=== PATIENT | female | born 1990 | race African-American/Black ===

== ENCOUNTER 2020-11-01 20:01 | Inpatient (IN) ==
[2020-11-01] MEDS ORDERED: methylPREDNISolone SOD SUC 125 MG/2 ML VIAL IV STA (20:50)
[2020-11-01] MEDS ORDERED: ALBUTEROL/IPRATROPIUM 3 ML NEB RESP TX STA (20:54)
[2020-11-01 21:50] LABS: Basophils % 0.2 % (0.0-0.8); Immature Granulocytes % 0.8 %; Immature Granulocytes Absolute 0.14 #; Lymphocytes # 1.5 10*3/uL (1.4-4.0); Mean Corpuscular HGB Conc 33.3 GM/DL (32-36); Mean Corpuscular Volume 86.1 FL (87-102); Monocytes % 2.5 % (1.7-12.7); Neutrophils % 88.5 % (38.7-73.9); Platelet Count 346 T/CUMM (130-400); Red Blood Count 4.18 MC/CUMM (3.8-5.5); Red Cell Distribution Width 14.5 % (9.3-17.3); White Blood Count 18.1 T/CUMM (4-12)
[2020-11-01] MEDS ORDERED: ALBUTEROL 2.5 MG/3 ML NEB RESP TX STA ×2 (21:53→21:54)
[2020-11-01 21:58] LABS: Alanine Aminotransferase 25 U/L (13-56); Albumin 3.2 G/DL (3.4-5.0); Alkaline Phosphatase 85 U/L (45-117); Aspartate Amino Transferase 26 U/L (0-37); Bilirubin,Total < 0.39 MG/DL (0.2-1.0); Blood Urea Nitrogen 8 MG/DL (7-18); Calcium 9.4 MG/DL (8.5-10.1); Estimated Glom Filtration Rate 138 ML/MIN; Glucose 159 MG/DL (74-106); Osmolality,Calculated 273.8 MOS/KG (273-304); Total Protein 7.6 G/DL (6.4-8.3)
[2020-11-01] MEDS ORDERED: SODIUM CHLORIDE 0.9% 1,000 ML IV STA (22:21)
[2020-11-02] MEDS ORDERED: ALBUTEROL 2.5 MG/3 ML NEB RESP TX PRN ×2 (01:38→08:22)
[2020-11-02] MEDS ORDERED: ONDANSETRON 4 MG/2 ML VIAL IV PRN (01:42)
[2020-11-02] MEDS ORDERED: ACETAMINOPHEN 325 MG TABLET PO PRN (01:42)
[2020-11-02] MEDS ORDERED: DOCUSATE SODIUM 100 MG CAPSULE PO PRN (01:42)
[2020-11-02] MEDS ORDERED: SODIUM CHLORIDE 0.9% 100 ML IV ONE (01:57)
[2020-11-02] MEDS: cefTRIAXone 1,000 MG in SYRINGE 1 EACH IV SCH (02:00)
[2020-11-02] MEDS: methylPREDNISolone SOD SUC 125 MG/2 ML VIAL IV SCH ×4 (03:11→20:55)
[2020-11-02] MEDS: AZITHROMYCIN INJ 250 MG in SODIUM CHLORIDE 0.9% 250 ML IV SCH (03:12)
[2020-11-02 05:46] LABS: Basophils % 0.1 % (0.0-0.8); Hematocrit 33.4 VOL% (35.7-47.0); Immature Granulocytes % 0.8 %; Immature Granulocytes Absolute 0.15 #; Lymphocytes # 1.6 10*3/uL (1.4-4.0); Lymphocytes % 8.4 % (21.3-54.2); Mean Corpuscular HGB Conc 32.9 GM/DL (32-36); Mean Corpuscular Volume 87.2 FL (87-102); Mean Platelet Volume 10.4 FL (9.6-12.0); Neutrophils % 87.7 % (38.7-73.9); Platelet Count 321 T/CUMM (130-400); Red Blood Count 3.83 MC/CUMM (3.8-5.5); Red Cell Distribution Width 14.6 % (9.3-17.3); White Blood Count 18.6 T/CUMM (4-12)
[2020-11-02 06:08] LABS: Calcium 8.7 MG/DL (8.5-10.1); Osmolality,Calculated 275.7 MOS/KG (273-304)
[2020-11-02] MEDS ORDERED: ALBUTEROL 2.5 MG/3 ML NEB RESP TX SCH (07:00)
[2020-11-02] MEDS ORDERED: MAGNESIUM SULF RIDER 2 GM in PREMIX 1 EACH IV ONE (08:24)
[2020-11-02] MEDS: FLUTICASONE/SALMETEROL 100-50 DISKUS 14 DOSE INH SCH ×2 (09:04→22:21)
[2020-11-02] MEDS: ENOXAPARIN 40 MG/0.4 ML SYRINGE SUBCUT SCH (09:04)
[2020-11-02] MEDS ORDERED: HydrOXYzine PAMOATE 50 MG CAPSULE PO PRN (10:18)
[2020-11-02] MEDS: ALBUTEROL 2.5 MG/3 ML NEB RESP TX SCH ×4 (11:00→23:08)
[2020-11-02] MEDS ORDERED: MONTELUKAST 10 MG TABLET PO SCH (21:00)
[2020-11-03] MEDS: cefTRIAXone 1,000 MG in SYRINGE 1 EACH IV SCH (02:32)
[2020-11-03] MEDS: methylPREDNISolone SOD SUC 125 MG/2 ML VIAL IV SCH ×2 (02:33→09:16)
[2020-11-03] MEDS: AZITHROMYCIN INJ 250 MG in SODIUM CHLORIDE 0.9% 250 ML IV SCH (02:45)
[2020-11-03] MEDS: ALBUTEROL 2.5 MG/3 ML NEB RESP TX SCH ×3 (03:01→10:50)
[2020-11-03 05:43] LABS: Basophils % 0.1 % (0.0-0.8); Hemoglobin 11.4 GM/DL (12.0-16.0); Immature Granulocytes % 1.3 %; Immature Granulocytes Absolute 0.28 #; Lymphocytes # 1.2 10*3/uL (1.4-4.0); Lymphocytes % 5.6 % (21.3-54.2); Mean Corpuscular HGB Conc 32.6 GM/DL (32-36); Mean Corpuscular Volume 88.4 FL (87-102); Monocytes % 3.2 % (1.7-12.7); Neutrophils % 89.8 % (38.7-73.9); Platelet Count 332 T/CUMM (130-400); Red Blood Count 3.96 MC/CUMM (3.8-5.5); Red Cell Distribution Width 14.7 % (9.3-17.3); White Blood Count 21.8 T/CUMM (4-12)
[2020-11-03 06:06] LABS: Calcium 8.4 MG/DL (8.5-10.1); Osmolality,Calculated 280.4 MOS/KG (273-304)
[2020-11-03 07:44] LABS: Anisocytosis 1+; Band Neutrophils 2 % (0-10); Lymphocytes 6 % (20-55); Macrocytosis 1+; Platelet Estimate Normal; Segmented Neutrophils 89 % (50-85); Total Cells Counted 100
[2020-11-03] MEDS: FLUTICASONE/SALMETEROL 100-50 DISKUS 14 DOSE INH SCH (09:15)
[2020-11-03] MEDS: ENOXAPARIN 40 MG/0.4 ML SYRINGE SUBCUT SCH (09:16)
[2020-11-03 12:23] VITALS: BP 140/58
== END 2020-11-03 13:18 | disposition home or self-care (01) | DRG 203 ==
LOC: N.ED 20:01 → N.EDINP 20:01 → SUATTDRO 23:36 → N.CC 11-02 04:16 → N.5E 11-02 11:06
PROVIDERS: ADMIT Family Medicine; ATTEND Family Medicine

== ENCOUNTER 2021-01-31 19:22 | Inpatient (IN) ==
[2021-01-31] MEDS ORDERED: ALBUTEROL 2.5 MG/3 ML NEB RESP TX ONE (19:28)
[2021-01-31] MEDS ORDERED: ALBUTEROL NEB SOLN 5 MG/ML 20 ML/BOTTLE CONT NEB STA (19:35)
[2021-01-31] MEDS ORDERED: SODIUM CHLORIDE 0.9% 1,000 ML IV STA (19:35)
[2021-01-31] MEDS ORDERED: methylPREDNISolone SOD SUC 125 MG/2 ML VIAL IV STA (19:37)
[2021-01-31] MEDS ORDERED: ONDANSETRON 4 MG/2 ML VIAL IV STA (19:40)
[2021-01-31] MEDS ORDERED: MORPHINE 4 MG/1 ML VIAL IV STA (19:40)
[2021-01-31] MEDS ORDERED: MAGNESIUM SULF RIDER 1 GM in PREMIX 1 EACH IV STA ×2 (19:44→20:55)
[2021-01-31 19:45] LABS: Basophils % 0.2 % (0.0-0.8); Eosinophils % 0.1 % (0.00-10.9); Hematocrit 39.7 VOL% (35.7-47.0); Hemoglobin 12.5 GM/DL (12.0-16.0); Lymphocytes # 2.7 10*3/uL (1.4-4.0); Lymphocytes % 17.8 % (21.3-54.2); Mean Corpuscular HGB Conc 31.5 GM/DL (32-36); Mean Corpuscular Volume 90.2 FL (87-102); Mean Platelet Volume 10.2 FL (9.6-12.0); Monocytes % 2.9 % (1.7-12.7); Platelet Count 414 T/CUMM (130-400); Red Cell Distribution Width 14.3 % (9.3-17.3); White Blood Count 15.4 T/CUMM (4-12)
[2021-01-31 20:06] LABS: Alanine Aminotransferase 23 U/L (13-56); Albumin 3.3 G/DL (3.4-5.0); Alkaline Phosphatase 95 U/L (45-117); Aspartate Amino Transferase 13 U/L (0-37); Bilirubin,Total < 0.39 MG/DL (0.2-1.0); Blood Urea Nitrogen 9 MG/DL (7-18); Calcium 8.9 MG/DL (8.5-10.1); Carbon Dioxide 20 MMOL/L (21-32); Glucose 242 MG/DL (74-106); Osmolality,Calculated 281.7 MOS/KG (273-304); Potassium 4.1 MMOL/L (3.5-5.1); Sodium 138 MMOL/L (136-145); Total Protein 7.8 G/DL (5.0-7.5)
[2021-01-31 20:20] LABS: Estimated Glom Filtration Rate 0 ML/MIN
[2021-01-31] MEDS ORDERED: ALBUTEROL 2.5 MG/3 ML NEB RESP TX PRN (20:50)
[2021-01-31] MEDS ORDERED: DOCUSATE SODIUM 100 MG CAPSULE PO PRN (20:50)
[2021-01-31] MEDS ORDERED: HydrOXYzine PAMOATE 50 MG CAPSULE PO PRN (20:53)
[2021-01-31] MEDS: LACTATED RINGERS 1,000 ML IV SCH (22:59)
[2021-01-31] MEDS: MONTELUKAST 10 MG TABLET PO SCH (22:59)
[2021-01-31] MEDS: ENOXAPARIN 40 MG/0.4 ML SYRINGE SUBCUT SCH (22:59)
[2021-01-31] MEDS: traMADol 50 MG TABLET PO PRN (22:59)
[2021-01-31] MEDS: methylPREDNISolone SOD SUC 40 MG/1 ML VIAL IV SCH (22:59)
[2021-01-31 23:24] LABS: Bilirubin,Urine Negative (Negative); Blood, Urine Negative (Negative); Glucose,Urine (UA) >=500 mg/dL (Negative); Hyaline Casts,Urine 6 /LPF (0-3); Ketones,Urine 5 mg/dL (Negative); Mucus,Urine Few /LPF (Occasional); Nitrite,Urine Negative (Negative); Protein,Urine 100 MG/DL; RBC,Urine <1 /HPF (0-4); Squamous Epithelial Cell,Urine Occasional /HPF (0-10); Urine Appearance CLEAR (Clear); Urine Color Yellow (Yellow); Urine Specific Gravity 1.022 (1.001-1.035); Urine Urobilinogen < 2.0 EU/DL (0.2-1.0); WBC,Urine 2 /HPF (0-6)
[2021-02-01 00:58] LABS: Basophils % 0.1 % (0.0-0.8); Hematocrit 35.8 VOL% (35.7-47.0); Hemoglobin 11.2 GM/DL (12.0-16.0); Immature Granulocytes % 0.9 %; Immature Granulocytes Absolute 0.17 #; Lymphocytes # 1.2 10*3/uL (1.4-4.0); Lymphocytes % 6.2 % (21.3-54.2); Mean Corpuscular HGB Conc 31.3 GM/DL (32-36); Mean Corpuscular Volume 90.6 FL (87-102); Monocytes % 1.4 % (1.7-12.7); Neutrophils % 91.4 % (38.7-73.9); Platelet Count 332 T/CUMM (130-400); Red Blood Count 3.95 MC/CUMM (3.8-5.5); Red Cell Distribution Width 14.5 % (9.3-17.3); White Blood Count 19.7 T/CUMM (4-12)
[2021-02-01] MEDS: ALBUTEROL/IPRATROPIUM 3 ML NEB RESP TX SCH ×4 (01:03→19:52)
[2021-02-01 01:25] LABS: Alanine Aminotransferase 19 U/L (13-56); Alkaline Phosphatase 82 U/L (45-117); Aspartate Amino Transferase 10 U/L (0-37); Bilirubin,Total < 0.39 MG/DL (0.2-1.0); Blood Urea Nitrogen 7 MG/DL (7-18); Calcium 8.6 MG/DL (8.5-10.1); Carbon Dioxide 22 MMOL/L (21-32); Estimated Glom Filtration Rate 126 ML/MIN; Glucose 211 MG/DL (74-106); Osmolality,Calculated 276.8 MOS/KG (273-304); Potassium 4.3 MMOL/L (3.5-5.1); Sodium 137 MMOL/L (136-145); Total Protein 7.1 G/DL (5.0-7.5)
[2021-02-01 01:40] LABS: Lymphocytes 7 % (20-55); Segmented Neutrophils 91 % (50-85); Total Cells Counted 100
[2021-02-01 01:41] LABS: Hypochromasia 1+; Platelet Estimate Normal
[2021-02-01] MEDS: methylPREDNISolone SOD SUC 40 MG/1 ML VIAL IV SCH ×2 (03:56→08:23)
[2021-02-01] MEDS: ACETAMINOPHEN 325 MG TABLET PO PRN ×2 (03:57→10:17)
[2021-02-01] MEDS: PANTOPRAZOLE 40 MG TABLET PO SCH (08:13)
[2021-02-01] MEDS: LACTATED RINGERS 1,000 ML IV SCH (08:25)
[2021-02-01] MEDS: methylPREDNISolone SOD SUC 125 MG/2 ML VIAL IV SCH ×2 (11:01→21:23)
[2021-02-01] MEDS: traMADol 50 MG TABLET PO PRN ×2 (13:13→21:17)
[2021-02-01] MEDS: MONTELUKAST 10 MG TABLET PO SCH (21:17)
[2021-02-01] MEDS: ENOXAPARIN 40 MG/0.4 ML SYRINGE SUBCUT SCH (21:23)
[2021-02-02] MEDS: ACETAMINOPHEN 325 MG TABLET PO PRN (00:15)
[2021-02-02 01:09] LABS: Calcium 8.3 MG/DL (8.5-10.1); Osmolality,Calculated 278.7 MOS/KG (273-304)
[2021-02-02] MEDS: ALBUTEROL/IPRATROPIUM 3 ML NEB RESP TX SCH ×4 (01:38→20:02)
[2021-02-02 01:46] LABS: Basophils % 0.1 % (0.0-0.8); Hematocrit 35.3 VOL% (35.7-47.0); Hemoglobin 11.2 GM/DL (12.0-16.0); Immature Granulocytes % 1.2 %; Immature Granulocytes Absolute 0.31 #; Lymphocytes # 1.6 10*3/uL (1.4-4.0); Lymphocytes % 6.3 % (21.3-54.2); Mean Corpuscular HGB Conc 31.7 GM/DL (32-36); Mean Corpuscular Volume 89.8 FL (87-102); Mean Platelet Volume 11.2 FL (9.6-12.0); Monocytes % 3.9 % (1.7-12.7); Neutrophils % 88.5 % (38.7-73.9); Platelet Count 313 T/CUMM (130-400); Red Blood Count 3.93 MC/CUMM (3.8-5.5); Red Cell Distribution Width 14.8 % (9.3-17.3); White Blood Count 25.3 T/CUMM (4-12)
[2021-02-02 04:38] LABS: Hypochromasia Slight; Lymphocytes 4 % (20-55); Platelet Estimate Adequate; Segmented Neutrophils 92 % (50-85); Total Cells Counted 100
[2021-02-02 04:39] LABS: Microcytosis Slight
[2021-02-02] MEDS: traMADol 50 MG TABLET PO PRN ×2 (08:48→22:20)
[2021-02-02] MEDS: methylPREDNISolone SOD SUC 125 MG/2 ML VIAL IV SCH (08:49)
[2021-02-02] MEDS: PANTOPRAZOLE 40 MG TABLET PO SCH (08:49)
[2021-02-02] MEDS ORDERED: POLYETHYLENE GLYCOL POWDER 17 GM PACK PO SCH (09:00)
[2021-02-02] MEDS ORDERED: methylPREDNISolone SOD SUC 40 MG/1 ML VIAL IV SCH (10:21)
[2021-02-02] MEDS: POLYETHYLENE GLYCOL POWDER 17 GM PACK PO SCH ×2 (10:54→22:20)
[2021-02-02] MEDS: predniSONE 20 MG TABLET PO SCH (10:56)
[2021-02-02] MEDS: NICOTINE 14 MG/24 HR PATCH TRANSDERM SCH (11:27)
[2021-02-02] MEDS: buPROPion SR 100 MG TABLET PO SCH (11:28)
[2021-02-02] MEDS: DOCUSATE SODIUM 100 MG CAPSULE PO SCH ×2 (11:28→22:20)
[2021-02-02] MEDS: BUDESONIDE/FORMOTEROL 80-4.5 INHALER 6.9 GM INH SCH ×2 (11:29→22:20)
[2021-02-02] MEDS: ONDANSETRON 4 MG/2 ML VIAL IV PRN ×3 (11:31→22:40)
[2021-02-02] MEDS: ENOXAPARIN 40 MG/0.4 ML SYRINGE SUBCUT SCH (22:20)
[2021-02-02] MEDS: MONTELUKAST 10 MG TABLET PO SCH (22:20)
[2021-02-03] MEDS: ALBUTEROL/IPRATROPIUM 3 ML NEB RESP TX SCH ×4 (01:20→19:23)
[2021-02-03 05:46] LABS: Basophils % 0.2 % (0.0-0.8); Eosinophils % 0.1 % (0.00-10.9); Hemoglobin 11.2 GM/DL (12.0-16.0); Immature Granulocytes % 1.5 %; Immature Granulocytes Absolute 0.29 #; Lymphocytes # 4.5 10*3/uL (1.4-4.0); Mean Corpuscular Volume 88.6 FL (87-102); Mean Platelet Volume 10.3 FL (9.6-12.0); Monocytes % 7.1 % (1.7-12.7); Neutrophils % 68.1 % (38.7-73.9); Platelet Count 296 T/CUMM (130-400); Red Blood Count 3.95 MC/CUMM (3.8-5.5); Red Cell Distribution Width 14.6 % (9.3-17.3); White Blood Count 19.5 T/CUMM (4-12)
[2021-02-03] MEDS: ONDANSETRON 4 MG/2 ML VIAL IV PRN ×4 (05:50→21:01)
[2021-02-03 06:03] LABS: Osmolality,Calculated 281.3 MOS/KG (273-304); Potassium 3.9 MMOL/L (3.5-5.1)
[2021-02-03 06:10] LABS: Hypochromasia 2+; Platelet Estimate Normal; Polychromasia Few
[2021-02-03] MEDS: BUDESONIDE/FORMOTEROL 80-4.5 INHALER 6.9 GM INH SCH ×2 (08:33→21:30)
[2021-02-03] MEDS: predniSONE 20 MG TABLET PO SCH (08:33)
[2021-02-03] MEDS: DOCUSATE SODIUM 100 MG CAPSULE PO SCH ×2 (08:33→21:01)
[2021-02-03] MEDS: NICOTINE 14 MG/24 HR PATCH TRANSDERM SCH (08:33)
[2021-02-03] MEDS: buPROPion SR 100 MG TABLET PO SCH (08:33)
[2021-02-03] MEDS: PANTOPRAZOLE 40 MG TABLET PO SCH (08:33)
[2021-02-03] MEDS: POLYETHYLENE GLYCOL POWDER 17 GM PACK PO SCH ×2 (08:33→21:01)
[2021-02-03] MEDS: traMADol 50 MG TABLET PO PRN (10:08)
[2021-02-03] MEDS ORDERED: MAGNESIUM CITRATE 300 ML BOTTLE PO ONE (13:02)
[2021-02-03] MEDS ORDERED: SODIUM PHOSPHATE ENEMA 133 ML BOTTLE RECTAL ONE (13:15)
[2021-02-03 14:16] LABS: Troponin I < 0.015 NG/ML (0.00-0.045)
[2021-02-03] MEDS: ENOXAPARIN 40 MG/0.4 ML SYRINGE SUBCUT SCH (21:00)
[2021-02-03] MEDS ORDERED: SENNA 8.6 MG TABLET PO SCH (21:00)
[2021-02-03] MEDS: MONTELUKAST 10 MG TABLET PO SCH (21:01)
[2021-02-04] MEDS: ALBUTEROL/IPRATROPIUM 3 ML NEB RESP TX SCH ×3 (01:19→13:00)
[2021-02-04] MEDS: ONDANSETRON 4 MG/2 ML VIAL IV PRN ×2 (01:54→08:17)
[2021-02-04] MEDS: ACETAMINOPHEN 325 MG TABLET PO PRN (01:58)
[2021-02-04 03:46] LABS: Basophils % 0.2 % (0.0-0.8); Eosinophils # 0.1 10*3/uL (0.0-0.87); Eosinophils % 0.3 % (0.00-10.9); Hematocrit 35.3 VOL% (35.7-47.0); Hemoglobin 11.4 GM/DL (12.0-16.0); Immature Granulocytes % 0.9 %; Immature Granulocytes Absolute 0.18 #; Lymphocytes # 5.7 10*3/uL (1.4-4.0); Lymphocytes % 29.3 % (21.3-54.2); Mean Corpuscular HGB Conc 32.3 GM/DL (32-36); Mean Corpuscular Volume 88.5 FL (87-102); Mean Platelet Volume 11.1 FL (9.6-12.0); Monocytes % 7.2 % (1.7-12.7); Neutrophils % 62.1 % (38.7-73.9); Platelet Count 307 T/CUMM (130-400); Red Blood Count 3.99 MC/CUMM (3.8-5.5); Red Cell Distribution Width 14.6 % (9.3-17.3); White Blood Count 19.6 T/CUMM (4-12)
[2021-02-04 04:10] LABS: Calcium 8.1 MG/DL (8.5-10.1); Osmolality,Calculated 275.5 MOS/KG (273-304); Potassium 3.5 MMOL/L (3.5-5.1)
[2021-02-04 04:11] LABS: Lymphocytes 34 % (20-55); Platelet Estimate Adequate; Segmented Neutrophils 61 % (50-85); Total Cells Counted 100
[2021-02-04 04:12] LABS: Hypochromasia Slight
[2021-02-04] MEDS ORDERED: LINACLOTIDE 145 MCG CAPSULE PO SCH (07:30)
[2021-02-04] MEDS: BUDESONIDE/FORMOTEROL 80-4.5 INHALER 6.9 GM INH SCH (08:16)
[2021-02-04] MEDS: NICOTINE 14 MG/24 HR PATCH TRANSDERM SCH (08:17)
[2021-02-04] MEDS: PANTOPRAZOLE 40 MG TABLET PO SCH (08:18)
[2021-02-04] MEDS: buPROPion SR 100 MG TABLET PO SCH (08:18)
[2021-02-04] MEDS: POLYETHYLENE GLYCOL POWDER 17 GM PACK PO SCH (08:18)
[2021-02-04] MEDS: predniSONE 20 MG TABLET PO SCH (08:18)
[2021-02-04] MEDS: DOCUSATE SODIUM 100 MG CAPSULE PO SCH (08:18)
[2021-02-04] MEDS ORDERED: PROMETHAZINE 25 MG TABLET PO ONE (11:00)
[2021-02-04 15:27] VITALS: BP 132/83
== END 2021-02-04 13:01 | disposition home or self-care (01) | DRG 202 ==
LOC: EDUNIT# → N.ED 19:22 → N.EDINP 20:50 → SUATTDRO 20:50 → N.ICU 22:12 → N.5E 02-01 11:15
PROVIDERS: ADMIT Internal Medicine; ATTEND Hospitalist

== ENCOUNTER 2021-06-24 05:45 | Observation (INO) ==
[2021-06-24] MEDS ORDERED: RACEPINEPHRINE 0.5 ML NEB RESP TX STA (05:53)
[2021-06-24] MEDS ORDERED: MAGNESIUM SULF RIDER 2 GM/50 ML PREMIX IV STA (05:53)
[2021-06-24] MEDS ORDERED: methylPREDNISolone SOD SUC 125 MG/2 ML VIAL IV STA (05:53)
[2021-06-24] MEDS ORDERED: ALBUTEROL NEB SOLN 5 MG/ML 20 ML/BOTTLE ONE (05:53)
[2021-06-24] MEDS ORDERED: ONDANSETRON 4 MG/2 ML VIAL IV STA (05:53)
[2021-06-24] MEDS ORDERED: RACEPINEPHRINE 0.5 ML NEB RESP TX ONE (05:54)
[2021-06-24] MEDS ORDERED: BUDESONIDE 0.5 MG/2 ML NEB RESP TX ONE (05:54)
[2021-06-24] MEDS ORDERED: ALBUTEROL NEB SOLN 5 MG/ML 20 ML/BOTTLE CONT NEB SCH (06:00)
[2021-06-24 06:21] LABS: Basophils % 0.4 % (0.0-0.8); Eosinophils # 0.4 10*3/uL (0.0-0.87); Eosinophils % 4.1 % (0.00-10.9); Hematocrit 35.9 VOL% (35.7-47.0); Hemoglobin 11.5 GM/DL (12.0-16.0); Immature Granulocytes % 0.4 %; Immature Granulocytes Absolute 0.03 #; Lymphocytes # 3.5 10*3/uL (1.4-4.0); Lymphocytes % 40.7 % (21.3-54.2); Mean Corpuscular Volume 88.4 FL (87-102); Mean Platelet Volume 10.8 FL (9.6-12.0); Monocytes % 7.6 % (1.7-12.7); Neutrophils % 46.8 % (38.7-73.9); Platelet Count 339 T/CUMM (130-400); Red Blood Count 4.06 MC/CUMM (3.8-5.5); Red Cell Distribution Width 14.4 % (9.3-17.3); White Blood Count 8.5 T/CUMM (4-12)
[2021-06-24 06:32] LABS: ABG Base Excess -1.5 MMOL/L (-2.5-2.5); ABG HCO3 23.1 MMOL/L (20-26); ABG Oxygen Saturation 99.6 % (95-100); ABG PCO2 41.1 MM HG (35-48); ABG PH 7.368 (7.35-7.45); ABG TCO2 21.2 MMOL/L (23-27)
[2021-06-24 06:43] LABS: Alanine Aminotransferase 19 U/L (13-56); Alkaline Phosphatase 72 U/L (45-117); Aspartate Amino Transferase 12 U/L (0-37); Bilirubin,Total < 0.39 MG/DL (0.20-1.00); Blood Urea Nitrogen 12 MG/DL (7-18); Calcium 8.3 MG/DL (8.5-10.1); Carbon Dioxide 24 MMOL/L (21-32); Estimated Glom Filtration Rate 172 ML/MIN; Glucose 113 MG/DL (74-106); Osmolality,Calculated 281.3 MOS/KG (273-304); Potassium 3.8 MMOL/L (3.5-5.1); Sodium 141 MMOL/L (136-145); Total Protein 6.5 G/DL (6.4-8.2)
[2021-06-24 08:03] LABS: Bilirubin,Urine Negative (Negative); Blood, Urine Negative (Negative); Glucose,Urine (UA) Negative (Negative); Ketones,Urine Negative (Negative); Mucus,Urine Occasional /LPF (Occasional); Nitrite,Urine Negative (Negative); Protein,Urine Negative; RBC,Urine 1 /HPF (0-4); Squamous Epithelial Cell,Urine Occasional /HPF (0-10); Urine Appearance CLEAR (Clear); Urine Color Yellow (Yellow); Urine Specific Gravity 1.014 (1.001-1.035); Urine Urobilinogen < 2.0 EU/DL (0.2-1.0)
[2021-06-24 08:06] LABS: Barbiturates Screen,Urine Negative (Negative); Benzodiazepines Screen,Urine Negative (Negative); Cannabinoid Screen,Urine Negative (Negative); Opiate Screen,Urine Negative (Negative); Phencyclidine Screen,Urine Negative (Negative)
[2021-06-24] MEDS ORDERED: DEXTROSE 50% 25 GM/50 ML VIAL IV PRN (08:30)
[2021-06-24] MEDS ORDERED: ACETAMINOPHEN 325 MG TABLET PO PRN (08:30)
[2021-06-24] MEDS ORDERED: GLUCAGON 1 MG VIAL IM PRN (08:30)
[2021-06-24] MEDS ORDERED: hydrALAZINE 20 MG/1 ML VIAL IV PRN (08:30)
[2021-06-24] MEDS ORDERED: ENOXAPARIN 40 MG/0.4 ML SYRINGE ONE (08:35)
[2021-06-24] MEDS: ENOXAPARIN 40 MG/0.4 ML SYRINGE SUBCUT SCH (08:38)
[2021-06-24] MEDS: ONDANSETRON 4 MG/2 ML VIAL IV PRN ×3 (08:39→20:29)
[2021-06-24] MEDS ORDERED: ALBUTEROL 2.5 MG/3 ML NEB RESP TX PRN (08:53)
[2021-06-24] MEDS: PANTOPRAZOLE 40 MG TABLET PO SCH (09:20)
[2021-06-24] MEDS: ALBUTEROL/IPRATROPIUM 3 ML NEB RESP TX SCH ×2 (12:30→18:25)
[2021-06-24] MEDS: methylPREDNISolone SOD SUC 125 MG/2 ML VIAL IV SCH ×2 (15:47→23:33)
[2021-06-24] MEDS: DOCUSATE SODIUM 100 MG CAPSULE PO PRN (20:22)
[2021-06-24] MEDS: BUDESONIDE/FORMOTEROL 160-4.5 INHALER 6 GM INH SCH (20:23)
[2021-06-24] MEDS ORDERED: MONTELUKAST 10 MG TABLET PO SCH (21:00)
[2021-06-24] MEDS ORDERED: tiZANidine 4 MG TABLET PO SCH (21:00)
[2021-06-25] MEDS: ALBUTEROL/IPRATROPIUM 3 ML NEB RESP TX SCH ×2 (00:38→07:27)
[2021-06-25 05:31] LABS: Basophils % 0.1 % (0.0-0.8); Hematocrit 35.6 VOL% (35.7-47.0); Hemoglobin 11.2 GM/DL (12.0-16.0); Immature Granulocytes % 1.1 %; Immature Granulocytes Absolute 0.24 #; Lymphocytes # 1.5 10*3/uL (1.4-4.0); Lymphocytes % 7.2 % (21.3-54.2); Mean Corpuscular HGB Conc 31.5 GM/DL (32-36); Mean Corpuscular Volume 89.9 FL (87-102); Mean Platelet Volume 10.5 FL (9.6-12.0); Monocytes % 2.7 % (1.7-12.7); Neutrophils % 88.9 % (38.7-73.9); Platelet Count 344 T/CUMM (130-400); Red Blood Count 3.96 MC/CUMM (3.8-5.5); Red Cell Distribution Width 14.6 % (9.3-17.3); White Blood Count 21.4 T/CUMM (4-12)
[2021-06-25] MEDS: ONDANSETRON 4 MG/2 ML VIAL IV PRN (05:42)
[2021-06-25 05:49] LABS: Calcium 8.6 MG/DL (8.5-10.1); Osmolality,Calculated 276.7 MOS/KG (273-304); Potassium 4.2 MMOL/L (3.5-5.1)
[2021-06-25 05:56] LABS: Lymphocytes 5 % (20-55); Platelet Estimate Normal; Segmented Neutrophils 93 % (50-85); Total Cells Counted 100
[2021-06-25] MEDS ORDERED: SODIUM CHLORIDE 0.65% NASAL SPRAY 45 ML BOTTLE BOTH NARES PRN (07:06)
[2021-06-25] MEDS: PANTOPRAZOLE 40 MG TABLET PO SCH (07:21)
[2021-06-25] MEDS: DOCUSATE SODIUM 100 MG CAPSULE PO PRN (07:24)
[2021-06-25] MEDS ORDERED: predniSONE 20 MG TABLET PO SCH (07:30)
[2021-06-25 07:41] VITALS: BP 134/62
[2021-06-25] MEDS: ENOXAPARIN 40 MG/0.4 ML SYRINGE SUBCUT SCH (08:35)
[2021-06-25] MEDS: BUDESONIDE/FORMOTEROL 160-4.5 INHALER 6 GM INH SCH (08:35)
[2021-06-25] MEDS ORDERED: predniSONE 10 MG TABLET ONE (08:35)
[2021-06-25] MEDS ORDERED: LORATADINE 10 MG TABLET PO SCH (09:00)
== END 2021-06-25 10:45 | disposition home or self-care (01) ==
LOC: EDBD → EDUNIT# → N.EDINP 05:45 → N.ED 05:45 → N.EDINP 10:20 → N.OB 10:29
PROVIDERS: ADMIT Internal Medicine; ATTEND Internal Medicine

== ENCOUNTER 2021-07-10 08:06 | Observation (INO) ==
[2021-07-10] MEDS ORDERED: ALBUTEROL NEB SOLN 5 MG/ML 20 ML/BOTTLE CONT NEB STA (08:22)
[2021-07-10] MEDS ORDERED: methylPREDNISolone SOD SUC 125 MG/2 ML VIAL IV STA (08:23)
[2021-07-10] MEDS ORDERED: MAGNESIUM SULF RIDER 2 GM/50 ML PREMIX IV STA (08:23)
[2021-07-10 09:01] LABS: Basophils % 0.3 % (0.0-0.8); Eosinophils % 0.2 % (0.00-10.9); Hematocrit 36.8 VOL% (35.7-47.0); Hemoglobin 11.5 GM/DL (12.0-16.0); Immature Granulocytes % 0.5 %; Immature Granulocytes Absolute 0.05 #; Lymphocytes # 2.2 10*3/uL (1.4-4.0); Lymphocytes % 21.4 % (21.3-54.2); Mean Corpuscular HGB Conc 31.3 GM/DL (32-36); Mean Corpuscular Volume 90.2 FL (87-102); Mean Platelet Volume 10.5 FL (9.6-12.0); Monocytes % 10.9 % (1.7-12.7); Neutrophils % 66.7 % (38.7-73.9); Platelet Count 370 T/CUMM (130-400); Red Blood Count 4.08 MC/CUMM (3.8-5.5); Red Cell Distribution Width 15.1 % (9.3-17.3); White Blood Count 10.5 T/CUMM (4-12)
[2021-07-10 09:17] LABS: Calcium 8.3 MG/DL (8.5-10.1); Osmolality,Calculated 282.1 MOS/KG (273-304); Potassium 3.5 MMOL/L (3.5-5.1)
[2021-07-10] MEDS ORDERED: DEXTROSE 50% 25 GM/50 ML VIAL IV PRN (10:41)
[2021-07-10] MEDS ORDERED: ACETAMINOPHEN 325 MG TABLET PO PRN (10:41)
[2021-07-10] MEDS ORDERED: ALBUTEROL 2.5 MG/3 ML NEB RESP TX PRN (10:41)
[2021-07-10] MEDS ORDERED: GLUCAGON 1 MG VIAL IM PRN (10:41)
[2021-07-10] MEDS ORDERED: methylPREDNISolone SOD SUC 125 MG/2 ML VIAL IV SCH (11:00)
[2021-07-10] MEDS ORDERED: hydrALAZINE 20 MG/1 ML VIAL IV PRN (12:00)
[2021-07-10] MEDS ORDERED: NICOTINE 21 MG/24 HR PATCH TRANSDERM PRN (12:01)
[2021-07-10] MEDS: ENOXAPARIN 40 MG/0.4 ML SYRINGE SUBCUT SCH (12:11)
[2021-07-10] MEDS ORDERED: NON-FORMULARY MEDICATION (Acetaminophen 500 mg Capsule) PO PRN (13:52)
[2021-07-10] MEDS ORDERED: SODIUM CHLORIDE 0.65% NASAL SPRAY 45 ML BOTTLE BOTH NARES PRN (13:52)
[2021-07-10] MEDS ORDERED: ALBUTEROL SULFATE IH PRN (13:52)
[2021-07-10] MEDS: methylPREDNISolone SOD SUC 125 MG/2 ML VIAL IV SCH ×2 (14:28→21:04)
[2021-07-10] MEDS: HydrOXYzine PAMOATE 25 MG CAPSULE PO PRN (14:43)
[2021-07-10] MEDS ORDERED: LEVOFLOXACIN 750 MG TABLET PO SCH (15:00)
[2021-07-10] MEDS: ALBUTEROL 2.5 MG/3 ML NEB RESP TX SCH ×2 (15:26→23:50)
[2021-07-10] MEDS ORDERED: cefTRIAXone 1,000 MG in SODIUM CHLORIDE 0.9% 100 ML IV SCH (16:00)
[2021-07-10] MEDS ORDERED: AZITHROMYCIN INJ 500 MG in SODIUM CHLORIDE 0.9% 250 ML IV SCH (16:00)
[2021-07-10] MEDS: ONDANSETRON 4 MG/2 ML VIAL IV PRN (17:14)
[2021-07-10] MEDS ORDERED: MONTELUKAST 10 MG TABLET PO SCH ×2 (21:00)
[2021-07-10] MEDS ORDERED: tiZANidine 4 MG TABLET PO SCH (21:00)
[2021-07-10] MEDS: BENZONATATE 100 MG CAPSULE PO PRN (21:03)
[2021-07-10] MEDS: BUDESONIDE/FORMOTEROL 160-4.5 INHALER 6 GM INH SCH (21:04)
[2021-07-11] MEDS: methylPREDNISolone SOD SUC 125 MG/2 ML VIAL IV SCH ×2 (03:46→10:00)
[2021-07-11] MEDS: ONDANSETRON 4 MG/2 ML VIAL IV PRN (06:26)
[2021-07-11] MEDS: ALBUTEROL 2.5 MG/3 ML NEB RESP TX SCH (07:16)
[2021-07-11] MEDS ORDERED: PANTOPRAZOLE 40 MG TABLET PO SCH (09:00)
[2021-07-11] MEDS: HydrOXYzine PAMOATE 25 MG CAPSULE PO PRN (09:14)
[2021-07-11] MEDS: BUDESONIDE/FORMOTEROL 160-4.5 INHALER 6 GM INH SCH (09:15)
[2021-07-11] MEDS: BENZONATATE 100 MG CAPSULE PO PRN (09:54)
[2021-07-11] MEDS: ENOXAPARIN 40 MG/0.4 ML SYRINGE SUBCUT SCH (10:01)
[2021-07-11 11:19] VITALS: BP 134/62
[2021-07-12] MEDS ORDERED: predniSONE 20 MG TABLET PO SCH (09:00)
== END 2021-07-11 13:00 | disposition home or self-care (01) ==
LOC: N.ED 08:06 → N.EDINP 08:06 → N.5E 12:15
PROVIDERS: ADMIT Internal Medicine; ATTEND Internal Medicine

== ENCOUNTER 2022-04-15 07:42 | Inpatient (IN) ==
[2022-04-15 08:03] LABS: Basophils % 0.6 % (0.0-0.8); Eosinophils # 0.4 10*3/uL (0.0-0.87); Eosinophils % 6.3 % (0.00-10.9); Hematocrit 34.7 VOL% (35.7-47.0); Hemoglobin 11.1 GM/DL (12.0-16.0); Immature Granulocytes % 0.4 %; Immature Granulocytes Absolute 0.03 #; Lymphocytes # 2.3 10*3/uL (1.4-4.0); Lymphocytes % 32.3 % (21.3-54.2); Mean Platelet Volume 10.1 FL (9.6-12.0); Monocytes # 0.6 10*3/uL (0.11-0.8); Monocytes % 8.1 % (1.7-12.7); Neutrophils % 52.3 % (38.7-73.9); Platelet Count 299 T/CUMM (130-400); Red Blood Count 3.99 MC/CUMM (3.8-5.5); Red Cell Distribution Width 14.1 % (9.3-17.3)
[2022-04-15] MEDS ORDERED: methylPREDNISolone SOD SUC 125 MG/2 ML VIAL IV STA ×2 (08:13→14:52)
[2022-04-15] MEDS ORDERED: ALBUTEROL NEB SOLN 5 MG/ML 20 ML/BOTTLE CONT NEB STA (08:13)
[2022-04-15 08:30] LABS: Alanine Aminotransferase 16 U/L (13-56); Albumin 2.9 G/DL (3.4-5.0); Alkaline Phosphatase 78 U/L (45-117); Aspartate Amino Transferase 10 U/L (0-37); Bilirubin,Total < 0.39 MG/DL (0.20-1.00); Blood Urea Nitrogen 11 MG/DL (7-18); Calcium 8.4 MG/DL (8.5-10.1); Carbon Dioxide 22 MMOL/L (21-32); Chloride 109 MMOL/L (98-107); Glucose 103 MG/DL (74-106); Osmolality,Calculated 273.7 MOS/KG (273-304); Potassium 3.5 MMOL/L (3.5-5.1); Sodium 138 MMOL/L (136-145); Total Protein 6.9 G/DL (6.4-8.2)
[2022-04-15] MEDS ORDERED: ONDANSETRON 4 MG/2 ML VIAL IV STA (09:57)
[2022-04-15] MEDS ORDERED: MORPHINE 10 MG/1 ML VIAL IV STA (09:57)
[2022-04-15] MEDS ORDERED: MORPHINE 2 MG/1 ML SYRINGE ONE (10:00)
[2022-04-15] MEDS ORDERED: guaiFENesin/DM ER 600-30 MG TABLET PO PRN (11:12)
[2022-04-15] MEDS ORDERED: hydrALAZINE 20 MG/1 ML VIAL IV PRN (11:12)
[2022-04-15] MEDS ORDERED: GLUCAGON 1 MG VIAL IM PRN (11:12)
[2022-04-15] MEDS ORDERED: ACETAMINOPHEN 325 MG TABLET PO PRN (11:12)
[2022-04-15] MEDS ORDERED: DEXTROSE 10% 250 ML BAG IV PRN (11:12)
[2022-04-15] MEDS ORDERED: MAGNESIUM SULF RIDER 2 GM/50 ML PREMIX IV ONE (11:13)
[2022-04-15] MEDS: LACTATED RINGERS 1,000 ML IV SCH (12:30)
[2022-04-15] MEDS ORDERED: LORazepam 2 MG/1 ML VIAL ONE (14:47)
[2022-04-15] MEDS ORDERED: LORazepam 2 MG/1 ML VIAL IV ONE (14:48)
[2022-04-15] MEDS ORDERED: methylPREDNISolone SOD SUC 125 MG/2 ML VIAL IV ONE (14:52)
[2022-04-15] MEDS: ALBUTEROL 2.5 MG/3 ML NEB RESP TX SCH ×3 (14:55→23:50)
[2022-04-15 15:14] LABS: Arterial Base Excess iSTAT -4 MMOL/L (-2.5-2.5); Arterial Bicarbonate iSTAT 20.7 MMOL/L (20-26); Arterial O2 Saturation iSTAT 97 % (95-100); Arterial PCO2 iSTAT 35 MM HG (35-48); Arterial PO2 iSTAT 95 MM HG (80-95); Arterial Total CO2 iSTAT 22 MMO/L (23-27); Arterial pH iSTAT 7.376 (7.35-7.45)
[2022-04-15] MEDS ORDERED: FLUTICASONE/SALMETEROL 500-50 DISKUS 14 DOSE INH SCH (21:00)
[2022-04-15] MEDS: MONTELUKAST 10 MG TABLET PO SCH (21:09)
[2022-04-15] MEDS: BUDESONIDE/FORMOTEROL 160-4.5 INHALER 6 GM INH SCH (21:10)
[2022-04-15] MEDS: methylPREDNISolone SOD SUC 125 MG/2 ML VIAL IV SCH (21:10)
[2022-04-15] MEDS: ENOXAPARIN 40 MG/0.4 ML SYRINGE SUBCUT SCH (21:10)
[2022-04-15] MEDS: ONDANSETRON 4 MG/2 ML VIAL IV PRN (21:13)
[2022-04-15] MEDS: MORPHINE 2 MG/1 ML SYRINGE IV PRN (22:48)
[2022-04-16] MEDS: LACTATED RINGERS 1,000 ML IV SCH ×3 (00:54→21:27)
[2022-04-16] MEDS: methylPREDNISolone SOD SUC 125 MG/2 ML VIAL IV SCH ×4 (02:20→21:15)
[2022-04-16] MEDS: ALBUTEROL 2.5 MG/3 ML NEB RESP TX SCH ×6 (03:30→22:49)
[2022-04-16 05:10] LABS: Basophils % 0.1 % (0.0-0.8); Hematocrit 35.2 VOL% (35.7-47.0); Hemoglobin 11.3 GM/DL (12.0-16.0); Immature Granulocytes % 0.8 %; Immature Granulocytes Absolute 0.12 #; Lymphocytes # 1.5 10*3/uL (1.4-4.0); Lymphocytes % 10.2 % (21.3-54.2); Mean Corpuscular HGB Conc 32.1 GM/DL (32-36); Mean Corpuscular Volume 86.3 FL (87-102); Mean Platelet Volume 10.1 FL (9.6-12.0); Monocytes # 0.2 10*3/uL (0.11-0.8); Monocytes % 1.5 % (1.7-12.7); Neutrophils % 87.4 % (38.7-73.9); Platelet Count 316 T/CUMM (130-400); Red Blood Count 4.08 MC/CUMM (3.8-5.5); Red Cell Distribution Width 14.4 % (9.3-17.3); White Blood Count 14.5 T/CUMM (4-12)
[2022-04-16 05:26] LABS: Calcium 8.8 MG/DL (8.5-10.1); Osmolality,Calculated 275.7 MOS/KG (273-304)
[2022-04-16] MEDS ORDERED: tiZANidine 4 MG TABLET PO PRN (09:48)
[2022-04-16] MEDS ORDERED: LORazepam 2 MG/1 ML VIAL IV PRN (09:57)
[2022-04-16] MEDS: amLODIPine 2.5 MG TABLET PO SCH (10:05)
[2022-04-16] MEDS: PANTOPRAZOLE 40 MG TABLET PO SCH (10:05)
[2022-04-16] MEDS: BUDESONIDE/FORMOTEROL 160-4.5 INHALER 6 GM INH SCH ×2 (10:07→21:12)
[2022-04-16] MEDS: MORPHINE 2 MG/1 ML SYRINGE IV PRN ×2 (10:08→18:39)
[2022-04-16] MEDS: AZITHROMYCIN 250 MG TABLET PO SCH (14:08)
[2022-04-16] MEDS: ENOXAPARIN 40 MG/0.4 ML SYRINGE SUBCUT SCH (21:08)
[2022-04-16] MEDS: MONTELUKAST 10 MG TABLET PO SCH (21:09)
[2022-04-17] MEDS: LACTATED RINGERS 1,000 ML IV SCH ×2 (00:18→06:33)
[2022-04-17] MEDS: methylPREDNISolone SOD SUC 125 MG/2 ML VIAL IV SCH ×4 (03:16→21:38)
[2022-04-17] MEDS: ALBUTEROL 2.5 MG/3 ML NEB RESP TX SCH ×6 (03:33→22:50)
[2022-04-17] MEDS: ONDANSETRON 4 MG/2 ML VIAL IV PRN ×2 (04:35→10:10)
[2022-04-17 05:45] LABS: Basophils % 0.1 % (0.0-0.8); Hematocrit 34.6 VOL% (35.7-47.0); Immature Granulocytes % 1.4 %; Lymphocytes # 1.4 10*3/uL (1.4-4.0); Lymphocytes % 6.5 % (21.3-54.2); Mean Corpuscular HGB Conc 31.8 GM/DL (32-36); Mean Corpuscular Volume 87.8 FL (87-102); Mean Platelet Volume 11.2 FL (9.6-12.0); Monocytes # 0.4 10*3/uL (0.11-0.8); Platelet Count 327 T/CUMM (130-400); Red Blood Count 3.94 MC/CUMM (3.8-5.5); Red Cell Distribution Width 14.7 % (9.3-17.3); White Blood Count 21.7 T/CUMM (4-12)
[2022-04-17 06:02] LABS: Calcium 8.6 MG/DL (8.5-10.1); Osmolality,Calculated 279.4 MOS/KG (273-304); Potassium 3.6 MMOL/L (3.5-5.1)
[2022-04-17 06:07] LABS: Band Neutrophils 1 % (0-10); Lymphocytes 8 % (20-55); Platelet Estimate Adequate; Total Cells Counted 100
[2022-04-17] MEDS: AZITHROMYCIN 250 MG TABLET PO SCH (09:56)
[2022-04-17] MEDS: PANTOPRAZOLE 40 MG TABLET PO SCH (09:56)
[2022-04-17] MEDS: amLODIPine 2.5 MG TABLET PO SCH (09:56)
[2022-04-17] MEDS: BUDESONIDE/FORMOTEROL 160-4.5 INHALER 6 GM INH SCH ×2 (09:57→21:38)
[2022-04-17] MEDS: MONTELUKAST 10 MG TABLET PO SCH (21:38)
[2022-04-17] MEDS: ENOXAPARIN 40 MG/0.4 ML SYRINGE SUBCUT SCH (21:38)
[2022-04-18] MEDS: ALBUTEROL 2.5 MG/3 ML NEB RESP TX SCH ×3 (03:15→11:19)
[2022-04-18 05:11] LABS: Basophils % 0.1 % (0.0-0.8); Hematocrit 36.1 VOL% (35.7-47.0); Hemoglobin 11.6 GM/DL (12.0-16.0); Immature Granulocytes % 2.4 %; Immature Granulocytes Absolute 0.52 #; Lymphocytes # 1.6 10*3/uL (1.4-4.0); Lymphocytes % 7.4 % (21.3-54.2); Mean Corpuscular HGB Conc 32.1 GM/DL (32-36); Mean Corpuscular Volume 87.4 FL (87-102); Mean Platelet Volume 10.8 FL (9.6-12.0); Monocytes # 0.7 10*3/uL (0.11-0.8); Monocytes % 3.4 % (1.7-12.7); Neutrophils % 86.7 % (38.7-73.9); Platelet Count 326 T/CUMM (130-400); Red Blood Count 4.13 MC/CUMM (3.8-5.5); White Blood Count 21.3 T/CUMM (4-12)
[2022-04-18 05:39] LABS: Band Neutrophils 1 % (0-10); Hypochromia 1+; Lymphocytes 9 % (20-55); Microcytosis 1+; Total Cells Counted 100
[2022-04-18 05:40] LABS: Ovalocytes Slight; Platelet Estimate Normal
[2022-04-18 08:32] VITALS: BP 171/92
[2022-04-18] MEDS: AZITHROMYCIN 250 MG TABLET PO SCH (09:05)
[2022-04-18] MEDS: PANTOPRAZOLE 40 MG TABLET PO SCH (09:05)
[2022-04-18] MEDS: amLODIPine 2.5 MG TABLET PO SCH (09:05)
[2022-04-18] MEDS: BUDESONIDE/FORMOTEROL 160-4.5 INHALER 6 GM INH SCH (09:06)
[2022-04-18] MEDS: methylPREDNISolone SOD SUC 125 MG/2 ML VIAL IV SCH (11:33)
== END 2022-04-18 11:24 | disposition home or self-care (01) | DRG 202 ==
LOC: N.5E 07:42 → N.ED 07:42 → N.5E 12:47 → SUATTDRO 04-16 09:58
PROVIDERS: ADMIT Internal Medicine; ATTEND Internal Medicine